=== PATIENT | male | born 2000 | race Caucasian/White ===

== ENCOUNTER 2022-08-21 10:32 | Emergency (ER) | payer BC ==
[~2022-08-21] VITALS: Ht 167.6 cm; Wt 72.7 kg
[2022-08-21 12:17] VITALS: BP 124/78
[2022-08-21] MEDS ORDERED: CYCL5TAB14 PO (14:29)
[2022-08-21] MEDS ORDERED: IBUP-1986 PO (14:29)
== END 2022-08-21 14:58 | disposition home or self-care (01) ==
LOC: ER 10:33
DX: M54.59 Other low back pain (principal); Z79.899 Other long term (current) drug therapy; V89.2XXA Person injured in unspecified motor-vehicle accident, traffic, initial encounter; Y93.89 Activity, other specified; Y92.89 Other specified places as the place of occurrence of the external cause; Y99.8 Other external cause status
CPT/HCPCS: 99283